=== PATIENT | male | born 1980 | race Caucasian/White ===

== ENCOUNTER → 2025-03-28 | Outpatient (CLI) | payer BC, SELFPAY ==
--- NOTE | 2025-03-28 16:58 | XR_ITS ---
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 No mass effect upon the ventricular system No effacement of sulcal markings The optic globes exhibit symmetry Symmetrical optic nerves No thickening of the optic musculature No abnormal retro-orbital enhancement Normal pituitary. No displacement of the optic chiasm or infundibular stock IMPRESSION: No abnormal enhancing cerebellar or cerebral lesions The optic globes appear intact
== END | disposition home or self-care (01) ==
LOC: SMRI 16:41
PROVIDERS: PCP Family Medicine
DX: H53.411 Scotoma involving central area, right eye (principal)
CPT/HCPCS: 70552; A9579